=== PATIENT | female | born 1965 | race Hispanic/Latino ===

== ENCOUNTER 2017-06-18 06:16 | Day surgery (SDC) | payer OTHER ==
[2017-06-14 13:02] VITALS: BP 133/78
[2017-06-14 13:09] LABS: BASOPHILS % (AUTO) 0.6 % (0.0-5.0); EOSINOPHILS % (AUTO) 1.4 % (0.0-8.0); HEMATOCRIT 34.8 % (36-48); LYMPHOCYTES % (AUTO) 16.4 % (21.0-51.0); MEAN CORPUSCULAR HEMOGLOBIN 23.4 pg (27.0-33.0); MEAN CORPUSCULAR HGB CONC 31.6 g/dL (32.0-36.0); MONOCYTES % (AUTO) 4.4 % (3.0-13.0); NEUTROPHILS % (AUTO) 77.2 % (40.0-77.0); NUCLEATED RED BLOOD CELLS 0.1 % (0.0-0.19); PLATELET COUNT (AUTO) 226 K/uL (130-400); RED BLOOD CELL COUNT(AUTO) 4.71 MIL/uL (4.00-5.50); RED CELL DISTRIBUTION WIDTH 15.6 % (11.0-15.5); WHITE BLOOD COUNT (AUTO) 7.7 K/uL (4.8-10.8)
[2017-06-18] VITALS (17 sets, daily range): BP systolic 138–173; BP diastolic 70–94
[~2017-06-18] VITALS: Ht 153.7 cm; Wt 70.8 kg
[~2017-06-18 06:16] MED LIST: CARV12.511 PO; DOCU100C33 PO; TAMS0.4C32 PO
[2017-06-18] MEDS: CEFAZOLIN SODIUM 1 GM VIAL IVP SCH ×2 (07:00→07:40)
[2017-06-18] MEDS ORDERED: FENTANYL CITRATE PF 50 MCG/1 ML 2ML VIAL ONE (07:02)
[2017-06-18] MEDS ORDERED: GLYCOPYRROLATE 0.2 MG/ML 5 ML VIAL ONE (07:02)
[2017-06-18] MEDS ORDERED: ONDANSETRON HCL 4 MG/2 ML VIAL ONE (07:02)
[2017-06-18] MEDS ORDERED: SUCCINYLCHOLINE 200MG/10ML SYR ONE (07:02)
[2017-06-18] MEDS ORDERED: MIDAZOLAM HCL 1 MG/ML 2ML VIAL ONE (07:02)
[2017-06-18] MEDS ORDERED: DEXAMETHASONE SOD PHOSPHATE 10MG/ML 1ML VIAL ONE (07:02)
[2017-06-18] MEDS ORDERED: PROPOFOL 10 MG/ML 20ML VIAL IV ONE (07:02)
[2017-06-18] MEDS ORDERED: NEOSTIGMINE METHYLSULFATE 1MG/ML IV ONE (07:02)
[2017-06-18] MEDS ORDERED: WATER FOR INJECTION,STERILE 20 ML VIAL ONE (07:21)
[2017-06-18] MEDS ORDERED: LACTATED RINGERS 1000ML 1,000 ML IV ONE (07:21)
[2017-06-18] MEDS ORDERED: ISOVUE-370 50ML VIAL IV ONE (07:46)
[2017-06-18] MEDS ORDERED: HYDRALAZINE HCL 20 MG/ML VIAL ONE (08:50)
== END 2017-06-18 10:20 | disposition home or self-care (01) ==
LOC: DAH 06:16 → SUH 06:16
PROVIDERS: ATTEND Surgery
DX: N13.1 Hydronephrosis with ureteral stricture, not elsewhere classified (principal); I10 Essential (primary) hypertension; E66.9 Obesity, unspecified; I25.10 Atherosclerotic heart disease of native coronary artery without angina pectoris; K21.9 Gastro-esophageal reflux disease without esophagitis; Z68.30 Body mass index [BMI] 30.0-30.9, adult; Z98.890 Other specified postprocedural states; Z98.51 Tubal ligation status; Z83.3 Family history of diabetes mellitus
CPT/HCPCS: 36415; 52332; 52341; 74420; 80048; 85025; 87088; A4354; A4358; C1726; C1758; C1769; C2617; J0330; J0360; J0690; J1100; J2250; J2405; J2704; J2710; J3010; J3490; J7120; Q9967